=== PATIENT | female | born 1990 | race American Indian/Alaskan Native ===

== ENCOUNTER 2016-10-08 02:02 | Emergency (ER) | payer SELFPAY ==
[2016-10-08 02:13] VITALS: BP 120/82
== END 2016-10-08 03:09 | disposition left against medical advice (07) ==
LOC: ED 02:02
DX: R09.89 Other specified symptoms and signs involving the circulatory and respiratory systems (principal); Z53.21 Procedure and treatment not carried out due to patient leaving prior to being seen by health care provider